=== PATIENT | male | born 1990 | race American Indian/Alaskan Native ===

== ENCOUNTER 2018-01-28 08:28 | Emergency (ER) | payer OTHER ==
--- NOTE | 2018-01-28 09:32 | XRay Report ---
Chest 2 views: Compared to 06/07/16. History: Chest pain. Shortness of breath. Findings: Normal cardiomediastinal silhouette. Trachea is midline. No consolidation, pneumothorax or pleural effusion. Impression: No acute cardiopulmonary findings.
[2018-01-28 09:35] LABS: Basophils % (Auto) 0.6 % (0.0-1.8); Eosinophils # (Auto) 0.1 K/mm3 (0.0-0.4); Eosinophils % (Auto) 1.6 % (0.0-4.3); Hematocrit 40.1 % (35.5-45.6); Hemoglobin 13.3 gm/dl (11.8-15.2); Lymphocytes # (Auto) 2.2 K/mm3 (1.2-5.4); Lymphocytes % (Auto) 29.9 % (13.4-35.0); Mean Corpuscular HGB Conc 33 % (32-34); Mean Corpuscular Hemoglobin 28 pg (28-32); Mean Corpuscular Volume 85 fl (84-94); Monocytes # (Auto) 0.5 K/mm3 (0.0-0.8); Monocytes % (Auto) 6.9 % (0.0-7.3); Platelet Count 310 K/mm3 (140-440); Red Blood Count 4.73 M/mm3 (3.65-5.03); Red Cell Distribution Width 13.7 % (13.2-15.2)
[2018-01-28 09:53] LABS: Alanine Aminotransferase 48 units/L (7-56); BUN/Creatinine Ratio 14; Blood Urea Nitrogen 14 mg/dL (9-20); Calcium 9.3 mg/dL (8.4-10.2); Hemolysis Index 8
[2018-01-28] MEDS ORDERED: PERCOCET 5/325 PO ONE (16:24)
--- NOTE | 2018-01-28 16:30 | Emergency Department Report ---
ED General Adult HPI - General Chief complaint: Abdominal Pain Stated complaint: LEFT SIDE ABD PAIN/CP Time Seen by Provider: 01/28/18 16:15 Source: patient Mode of arrival: Ambulatory Limitations: No Limitations - History of Present Illness Initial comments: 37-year-old male with history of severe obesity presents with left-sided chest pain and right-sided flank pain. Patient explains that he has had chest pain for several years. Chest pain tends to last for a week and then spontaneously relents. 2015 he was admitted for chest pain and rhabdomyolysis to our hospital. Ruled out for [place]. Currently chest pain is mild without radiation. No short of breath. Patient had gradual onset of right flank pain radiating to the groin and the right leg. Worse when he moves legs. This pain is mild dull. He denies dysuria. Denies hematuria. He denies fever. Denies cough. 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 He denies smoking. Father of a heart attack in his 40s. - Related Data Previous Rx's Medication Instructions Recorded Last Taken Type Famotidine [Pepcid] 20 mg PO BID #14 tablet 06/09/16 Unknown Rx oxyCODONE /ACETAMINOPHEN [Percocet 1 tab PO BID PRN #14 tablet 06/09/16 Unknown Rx 5/325] Ibuprofen 800 mg PO TID PRN #15 tablet 01/28/18 Unknown Rx Allergies Allergy/AdvReac Type Severity Reaction Status Date / Time No Known Allergies Allergy Verified 06/07/16 19:58 ED Review of Systems ROS: Stated complaint: LEFT SIDE ABD PAIN/CP Other details as noted in HPI Comment: All other systems reviewed and negative Constitutional: denies: fever, malaise Respiratory: cough ED Past Medical Hx - Past Medical History Previous Medical History?: Yes Hx Hypertension: Yes (no meds) Hx Congestive Heart Failure: No Hx Diabetes: No Hx Asthma: No Hx COPD: No - Surgical History Past Surgical History?: No - Social History Smoking Status: Never Smoker Substance Use Type: None - Medications Home Medications: Home Medications Medication Instructions Recorded Confirmed Last Taken Type Famotidine [Pepcid] 20 mg PO BID #14 tablet 06/09/16 Unknown Rx oxyCODONE /ACETAMINOPHEN [Percocet 1 tab PO BID PRN #14 tablet 06/09/16 Unknown Rx 5/325] Ibuprofen 800 mg PO TID PRN #15 tablet 01/28/18 Unknown Rx ED Physical Exam - General Limitations: No Limitations General appearance: alert, in no apparent distress - Head Head exam: Present: atraumatic, normocephalic - Eye Eye exam: Present: normal appearance - ENT ENT exam: Present: mucous membranes moist - Neck Neck exam: Present: normal inspection - Respiratory Respiratory exam: Present: normal lung sounds bilaterally. Absent: respiratory distress, wheezes, rales, rhonchi - Cardiovascular Cardiovascular Exam: Present: regular rate, normal rhythm, normal heart sounds. Absent: bradycardia, tachycardia, systolic murmur, diastolic murmur, rubs, gallop - GI/Abdominal GI/Abdominal exam: Present: soft, normal bowel sounds. Absent: distended, tenderness, guarding, rebound - Rectal Rectal exam: Present: deferred - Extremities Exam Extremities exam: Present: normal inspection - Back Exam Back exam: Present: normal inspection - Neurological Exam Neurological exam: Present: alert, oriented X3 - Psychiatric Psychiatric exam: Present: normal affect, normal mood - Skin Skin exam: Present: warm, dry, intact, normal color. Absent: rash ED Course Vital Signs 01/28/18 08:52 Temperature 98.4 F Pulse Rate 93 H Respiratory 18 Rate Blood Pressure 177/84 O2 Sat by Pulse 95 Oximetry ED Medical Decision Making - Lab Data Result diagrams: 01/28/18 09:28 01/28/18 09:24 Laboratory Results - last 24 hr 01/28/18 01/28/18 01/28/18 09:24 09:28 09:28 WBC 7.5 RBC 4.73 Hgb 13.3 Hct 40.1 MCV 85 MCH 28 MCHC 33 RDW 13.7 Plt Count 310 Lymph % (Auto) 29.9 [place] % (Auto) 6.9 Eos % (Auto) 1.6 Baso % (Auto) 0.6 Lymph # 2.2 [place] # 0.5 Eos # 0.1 Baso # 0.0 Seg Neutrophils % 61.0 Seg Neutrophils # 4.6 Sodium 139 Potassium 4.4 Chloride 100.8 Carbon Dioxide 28 Anion Gap 15 BUN 14 Creatinine 1.0 Estimated GFR > 60 BUN/Creatinine Ratio 14 Glucose 120 H Calcium 9.3 Total Bilirubin 0.30 AST 46 H ALT 48 Alkaline Phosphatase 49 Troponin T < 0.010 Total Protein 7.1 Albumin 4.0 Albumin/Globulin Ratio 1.3 Vital Signs - 24 hr 01/28/18 08:52 Temperature 98.4 F Pulse Rate 93 H Respiratory 18 Rate Blood Pressure 177/84 O2 Sat by Pulse 95 Oximetry - EKG Data -: EKG Interpreted by Me EKG shows normal: sinus rhythm, axis, intervals, QRS complexes, ST-T waves Rate: normal - EKG Data When compared to previous EKG there are: no significant change - Medical Decision Making 1. Mr. Prabhakar presents with atypical chest pain for several years. Differential diagnosis includes costochondritis versus muscle skeletal. He is currently negative. No indication of PE. Recommended ibuprofen as needed [id number]. 2. Right flank pain: Muscle skeletal pain recommended ibuprofen over-the- counter 3. Elevated blood pressure: no previous hx I have referred patient to physician photonics engineering technician rx: ibuprofen Critical care attestation.: If time is entered above; I have spent that time in minutes in the direct care of this critically ill patient, excluding procedure time. ED Disposition Clinical Impression: Atypical chest pain, Back pain, Elevated blood pressure reading Disposition: - TO HOME OR SELFCARE Is pt being admited?: No Does the pt Need Aspirin: No Condition: Stable Instructions: Chest Pain (ED), Acute Low Back Pain (ED) Additional Instructions: Please have your blood pressure checked by outpatient physician. Please obtain a full physical by our physician. Prescriptions: Ibuprofen 800 mg PO TID PRN #15 tablet PRN Reason: Pain Referrals: PRIMARY CARE, [Primary Care Provider] - 3-5 Days Forms: Work/School Release Form(ED) Time of Disposition: 16:35
[2018-01-28 16:46] VITALS: BP 178/96
== END 2018-01-28 17:32 | disposition home or self-care (01) ==
LOC: ED 08:28
DX: R07.89 Other chest pain (principal); I10 Essential (primary) hypertension
CPT/HCPCS: 36415; 71046; 80053; 84484; 85025; 93005; 93010; 99284